=== PATIENT | female | born 1975 | race Caucasian/White ===

== ENCOUNTER → 2017-04-06 | Outpatient (CLI) | payer OTHER ==
[~2017-04-06] MED LIST: ATEN25TA PO; LEVO200T PO; SIMV10TA3 PO; WARF5TAB7 PO
== END | disposition home or self-care (01) ==
LOC: PETCFH 10:49
PROVIDERS: ATTEND Internal Medicine Endocrinology, Diabetes & Metabolism
DX: E83.52 Hypercalcemia (principal)
CPT/HCPCS: 78070; A9500

== ENCOUNTER → 2018-02-21 | Outpatient (CLI) | payer OTHER ==
[~2018-02-21] MED LIST changes: +WARF-36 PO; -WARF5TAB7 PO
== END | disposition home or self-care (01) ==
LOC: CFH 07:10
PROVIDERS: ATTEND Surgery
DX: Z01.818 Encounter for other preprocedural examination (principal); E66.01 Morbid (severe) obesity due to excess calories; K21.9 Gastro-esophageal reflux disease without esophagitis; Z90.411 Acquired partial absence of pancreas
CPT/HCPCS: 74241

== ENCOUNTER → 2018-05-11 | Outpatient (CLI) | payer OTHER ==
[2018-05-11 09:21] LABS: ALANINE AMINOTRANSFERASE 53 U/L (12-78); ALBUMIN 3.6 g/dL (3.4-5.0); CALCIUM 8.9 mg/dL (8.5-10.1); CREATININE 1.09 mg/dL (0.55-1.02)
[2018-05-11 09:23] LABS: ALKALINE PHOSPHATASE 73 U/L (45-117); BILIRUBIN,TOTAL 0.4 mg/dL (0.2-1.0); TOTAL PROTEIN 7.5 g/dL (6.4-8.2)
[2018-05-11 09:35] LABS: ANION GAP 3 mmol/L (5-15); CHLORIDE 108 mmol/L (98-107)
[2018-05-11 11:19] LABS: CREATININE,URINE RANDOM 89.6 mg/dL
== END | disposition home or self-care (01) ==
LOC: LAB 08:48
PROVIDERS: ATTEND Internal Medicine Endocrinology, Diabetes & Metabolism
DX: I63.9 Cerebral infarction, unspecified (principal); K50.90 Crohn's disease, unspecified, without complications; Z85.850 Personal history of malignant neoplasm of thyroid
CPT/HCPCS: 36415; 80053; 82310; 82570; 84105

== ENCOUNTER → 2018-11-10 | Outpatient (CLI) | payer OTHER | END | disposition home or self-care (01) | LOC: CFH 08:44 | PROVIDERS: ATTEND Obstetrics & Gynecology | DX: Z12.31 Encounter for screening mammogram for malignant neoplasm of breast (principal); Z88.5 Allergy status to narcotic agent | CPT/HCPCS: 77063; 77067 ==

== ENCOUNTER → 2019-07-06 | Outpatient (CLI) | payer OTHER ==
[2019-07-06 12:32] LABS: ALANINE AMINOTRANSFERASE 63 U/L (12-78); ALBUMIN 3.5 g/dL (3.4-5.0); CALCIUM 8.6 mg/dL (8.5-10.1); CREATININE 0.94 mg/dL (0.55-1.02)
[2019-07-06 12:34] LABS: ALKALINE PHOSPHATASE 74 U/L (45-117); BILIRUBIN,TOTAL 0.4 mg/dL (0.2-1.0)
[2019-07-06 12:39] LABS: ANION GAP 7 mmol/L (5-15); CHLORIDE 108 mmol/L (98-107)
== END | disposition home or self-care (01) ==
LOC: LAB 12:03
PROVIDERS: ATTEND Internal Medicine Endocrinology, Diabetes & Metabolism
DX: I63.9 Cerebral infarction, unspecified (principal); K50.90 Crohn's disease, unspecified, without complications; Z85.850 Personal history of malignant neoplasm of thyroid
CPT/HCPCS: 36415; 80053; 82310; 82570; 83970; 84100; 84105

== ENCOUNTER → 2019-09-20 | Outpatient (CLI) | payer OTHER ==
[~2019-09-20] MED LIST changes: +SIMV10TA18 PO; -SIMV10TA3 PO
[2019-09-20 07:35] LABS: ALANINE AMINOTRANSFERASE 55 U/L (12-78); ALBUMIN 3.6 g/dL (3.4-5.0); ANION GAP 6 mmol/L (5-15); CALCIUM 8.4 mg/dL (8.5-10.1); CHLORIDE 108 mmol/L (98-107); CREATININE 0.96 mg/dL (0.55-1.02)
[2019-09-20 07:45] LABS: ALKALINE PHOSPHATASE 67 U/L (45-117); BILIRUBIN,TOTAL 0.4 mg/dL (0.2-1.0); FREE T4 (FREE THYROXINE) 1.27 ng/dL (0.76-1.46); TOTAL PROTEIN 7.1 g/dL (6.4-8.2)
== END | disposition home or self-care (01) ==
LOC: LAB 07:08
PROVIDERS: ATTEND Internal Medicine Endocrinology, Diabetes & Metabolism
DX: E03.9 Hypothyroidism, unspecified (principal); K50.90 Crohn's disease, unspecified, without complications
CPT/HCPCS: 36415; 80053; 84439; 84443; 84481; 84702

== ENCOUNTER → 2019-09-22 | Outpatient (CLI) | payer OTHER | END | disposition home or self-care (01) | LOC: LAB 10:38 | PROVIDERS: ATTEND Obstetrics & Gynecology | DX: N91.1 Secondary amenorrhea (principal) | CPT/HCPCS: 36415; 84702 ==

== ENCOUNTER 2019-10-14 14:17 | Emergency (ER) | payer OTHER ==
[~2019-10-14] VITALS: Ht 167.6 cm; Wt 111.0 kg
--- NOTE | 2019-10-14 14:43 | NUR ---
PT HERE WITH C/O BRIGHT RED BLEEDING FROM VAGINA WITH CLOT WHILE IN SHOWER THIS AM, PT STATES SHE HAD HAD SOME PREVIOUS BLEEDING THAT WAS DARK AND SCANT IN AMOUNT. PT NOW STATES SHE HAD A LARGE AMOUNT OF BRIGHT RED BLEEDING. SHE HAS NOT SOAKED THROUGH PADS. 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 PT DENIES LIGHTHEADINESS/SOB/CP
--- NOTE | 2019-10-14 14:56 | NUR ---
PT TO US AT THIS TIME, LABS DRAWN
[2019-10-14 15:10] LABS: BASOPHILS # (AUTO) 0.02 x10^3/uL (0-0.1); BASOPHILS % (AUTO) 0 % (0-1); EOSINOPHILS # (AUTO) 0.06 x10^3/uL (0-0.4); EOSINOPHILS % (AUTO) 1 % (1-7); LYMPHOCYTES # (AUTO) 1.46 x10^3/uL (1-3.4); LYMPHOCYTES % (AUTO) 16 % (22-44); MD NO; MEAN CORPUSCULAR HEMOGLOBIN 30.6 pg (27.0-34.8); MEAN CORPUSCULAR HGB CONC 33.4 g/dL (32.4-35.8); MEAN CORPUSCULAR VOLUME 91.5 fL (80-100); MEAN PLATELET VOLUME 6.5 fL (7.4-10.4); MONOCYTES # (AUTO) 0.59 x10^3/uL (0.2-0.8); MONOCYTES % (AUTO) 7 % (2-9); NEUTROPHILS % (AUTO) 76 % (42-75); PLATELET COUNT 305 x10^3/uL (130-400); RED BLOOD COUNT 4.24 x10^6/uL (3.82-5.3); RED CELL DISTRIBUTION WIDTH 13.1 % (9.6-15.2)
[2019-10-14 15:15] LABS: ALBUMIN 3.2 g/dL (3.4-5.0); ANION GAP 6 mmol/L (5-15); CALCIUM 8.9 mg/dL (8.5-10.1); CHLORIDE 108 mmol/L (98-107); CREATININE 0.77 mg/dL (0.55-1.02)
--- NOTE | 2019-10-14 15:38 | NUR ---
PT BACK FROM US, UA SAMPLE COLLECTED AND SENT TO LAB, MARK PER FOR CLEAN CATCH. VSS. NAD
[2019-10-14 15:49] LABS: MICROSCOPIC INDICATED
[2019-10-14 16:05] LABS: CULTURE INDICATED? NO
[2019-10-14 16:31] VITALS: BP 120/81
[2019-10-14 16:46] VITALS: BP 128/80
== END 2019-10-14 17:12 | disposition home or self-care (01) ==
LOC: ED 15:30
DX: O20.0 Threatened abortion (principal); O09.521 Supervision of elderly multigravida, first trimester; O10.911 Unspecified pre-existing hypertension complicating pregnancy, first trimester; O99.281 Endocrine, nutritional and metabolic diseases complicating pregnancy, first trimester; E03.9 Hypothyroidism, unspecified; Z3A.08 8 weeks gestation of pregnancy; Z86.73 Personal history of transient ischemic attack (TIA), and cerebral infarction without residual deficits
CPT/HCPCS: 36415; 76801; 80048; 81001; 82040; 84702; 85025; 86850; 86900; 99284; J2790

== ENCOUNTER 2019-10-19 11:08 | Outpatient (CLI) | payer OTHER ==
[2019-10-19 13:01] LABS: FREE T4 (FREE THYROXINE) 1.33 ng/dL (0.76-1.46)
== END 2019-10-19 23:59 | disposition home or self-care (01) ==
LOC: CFH 11:08
PROVIDERS: ATTEND Internal Medicine Endocrinology, Diabetes & Metabolism
DX: E03.9 Hypothyroidism, unspecified (principal); I63.9 Cerebral infarction, unspecified; K50.90 Crohn's disease, unspecified, without complications; Z85.850 Personal history of malignant neoplasm of thyroid
CPT/HCPCS: 36415; 84439; 84443; 84481

== ENCOUNTER → 2019-11-21 | Outpatient (CLI) | payer OTHER ==
[2019-11-21 12:00] LABS: FREE T4 (FREE THYROXINE) 1.18 ng/dL (0.76-1.46)
== END | disposition home or self-care (01) ==
LOC: LAB 11:18
PROVIDERS: ATTEND Family Medicine
DX: E89.0 Postprocedural hypothyroidism (principal)
CPT/HCPCS: 36415; 84439; 84443; 84480

== ENCOUNTER → 2019-12-28 | Outpatient (CLI) | payer OTHER ==
[2019-12-28 15:06] LABS: FREE T4 (FREE THYROXINE) 1.18 ng/dL (0.76-1.46)
== END | disposition home or self-care (01) ==
LOC: LAB 14:32
PROVIDERS: ATTEND Family Medicine
DX: E89.0 Postprocedural hypothyroidism (principal)
CPT/HCPCS: 36415; 84439; 84443; 84480

== ENCOUNTER 2020-01-15 12:20 | Outpatient (CLI) | payer OTHER ==
[2020-01-15 13:11] LABS: FREE T4 (FREE THYROXINE) 1.05 ng/dL (0.76-1.46)
== END 2020-01-15 23:59 | disposition home or self-care (01) ==
LOC: LAB 12:20
PROVIDERS: ATTEND Family Medicine
DX: E89.0 Postprocedural hypothyroidism (principal)
CPT/HCPCS: 36415; 84439; 84443; 84480

== ENCOUNTER 2020-01-21 16:06 | Emergency (ER) | payer OTHER ==
[~2020-01-21] VITALS: Ht 167.6 cm; Wt 115.9 kg
--- NOTE | 2020-01-21 16:22 | NUR ---
SPOKE WITH FER IN L&D, REQUESTED L&D TO COME ASSESS T
--- NOTE | 2020-01-21 16:34 | NUR ---
PT STATES THAT SHE HAS HAD 4 TOTAL EPISODES LIKE THIS SINCE THIS PAST TUESDAY. PT DESCRIBES A SUDDEN ONSET DIZZINESS THAT LEADS TO NAUSEA AND VOMITING. PT HAS VERY FULL EMESIS BAG AT BEDSIDE. PT STATES SHE HAS MONITORED BOTH HER BP AND BG DURING THESE EPISODES, ALL WNL. DENIES ANY FURTHER NEEDS, CALL LIGHT IN REACH.
[2020-01-21] MEDS ORDERED: SODIUM CHLORIDE FLUSH 10ML SYR IVF ONE (17:30)
[2020-01-21] MEDS ORDERED: MECLIZINE CHEWABLE 25 MG TAB PO ONE (17:30)
[2020-01-21] MEDS ORDERED: SODIUM CHLORIDE 0.9% 1,000ML IVBOLUS ONE (17:30)
[2020-01-21] MEDS ORDERED: MECLIZINE CHEWABLE 25 MG TAB ONE (17:52)
--- NOTE | 2020-01-21 17:56 | NUR ---
PT UP TO RESTROOM WITH STRONG, INDEPENDENT GAIT. AT SIDE FOR ASSISTANCE. URINE SAMPLE COLLECTED. IV STARTED, LABS DRAWN AND SENT. PT MEDICATED PER SEP. PT PROVIDED WITH WARM BLANKETS. CALL LIGHT IN REACH.
[2020-01-21 17:58] LABS: BASOPHILS # (AUTO) 0.07 x10^3/uL (0-0.1); BASOPHILS % (AUTO) 1 % (0-1); EOSINOPHILS # (AUTO) 0.06 x10^3/uL (0-0.4); EOSINOPHILS % (AUTO) 1 % (1-7); LYMPHOCYTES # (AUTO) 1.58 x10^3/uL (1-3.4); LYMPHOCYTES % (AUTO) 16 % (22-44); MD NO; MEAN CORPUSCULAR HEMOGLOBIN 32.3 pg (27.0-34.8); MEAN CORPUSCULAR HGB CONC 33.9 g/dL (32.4-35.8); MEAN PLATELET VOLUME 6.7 fL (7.4-10.4); MONOCYTES # (AUTO) 0.72 x10^3/uL (0.2-0.8); MONOCYTES % (AUTO) 7 % (2-9); NEUTROPHILS # (AUTO) 7.38 x10^3/uL (1.8-6.8); NEUTROPHILS % (AUTO) 75 % (42-75); PLATELET COUNT 255 x10^3/uL (130-400); RED BLOOD COUNT 3.74 x10^6/uL (3.82-5.3); RED CELL DISTRIBUTION WIDTH 13.5 % (9.6-15.2)
[2020-01-21 18:09] LABS: INTERNATIONAL NORMALIZED RATIO 0.89 (0.93-1.1); PROTHROMBIN TIME 9.4 Seconds (9.6-11.5)
[2020-01-21 18:11] LABS: ALANINE AMINOTRANSFERASE 26 U/L (12-78); ALBUMIN 3.1 g/dL (3.4-5.0); ANION GAP 5 mmol/L (5-15); CALCIUM 8.6 mg/dL (8.5-10.1); CHLORIDE 106 mmol/L (98-107); CREATININE 1.05 mg/dL (0.55-1.02)
[2020-01-21 18:13] LABS: ALKALINE PHOSPHATASE 54 U/L (45-117); BILIRUBIN,TOTAL 0.3 mg/dL (0.2-1.0); TOTAL PROTEIN 7.6 g/dL (6.4-8.2)
[2020-01-21 18:32] LABS: MICROSCOPIC NOT IND
[2020-01-21 19:19] VITALS: BP 142/85
--- NOTE | 2020-01-21 19:20 | NUR ---
BREAK RN: PT LAYING IN BED, POSITIONED TO COMFORT, LIGHTS OFF TO PROMOTE REST. RESPIRATIONS EVEN AND UNLABORED, NO SIGNS OF DISTRESS. CONNECTED TO BP AND O2 MONITOR. CALL LIGHT IN REACH. AT BEDSIDE.
== END 2020-01-21 20:08 | disposition home or self-care (01) ==
LOC: ED 19:18
DX: O26.892 Other specified pregnancy related conditions, second trimester (principal); R42 Dizziness and giddiness; O16.2 Unspecified maternal hypertension, second trimester; O99.282 Endocrine, nutritional and metabolic diseases complicating pregnancy, second trimester; R94.31 Abnormal electrocardiogram [ECG] [EKG]; Z86.73 Personal history of transient ischemic attack (TIA), and cerebral infarction without residual deficits; Z3A.22 22 weeks gestation of pregnancy
CPT/HCPCS: 36415; 80053; 81003; 84550; 85025; 85610; 85730; 93005; 96360; 96361; 99284; J7030

== ENCOUNTER 2020-01-24 10:41 | Outpatient (CLI) | payer OTHER | END 2020-01-24 23:59 | disposition home or self-care (01) | LOC: CVU 10:41 | PROVIDERS: ATTEND Internal Medicine Cardiovascular Disease | DX: O99.412 Diseases of the circulatory system complicating pregnancy, second trimester (principal); I08.1 Rheumatic disorders of both mitral and tricuspid valves; O16.2 Unspecified maternal hypertension, second trimester; Z3A.23 23 weeks gestation of pregnancy | CPT/HCPCS: 93306; 93356 ==

== ENCOUNTER 2020-01-26 11:11 | Outpatient (CLI) | payer OTHER ==
[2020-01-26 11:57] LABS: BASOPHILS # (AUTO) 0.02 x10^3/uL (0-0.1); BASOPHILS % (AUTO) 0 % (0-1); EOSINOPHILS # (AUTO) 0.03 x10^3/uL (0-0.4); EOSINOPHILS % (AUTO) 0 % (1-7); LYMPHOCYTES # (AUTO) 1.17 x10^3/uL (1-3.4); LYMPHOCYTES % (AUTO) 13 % (22-44); MD NO; MEAN CORPUSCULAR HEMOGLOBIN 31.8 pg (27.0-34.8); MEAN CORPUSCULAR HGB CONC 33.4 g/dL (32.4-35.8); MEAN CORPUSCULAR VOLUME 95.2 fL (80-100); MEAN PLATELET VOLUME 6.5 fL (7.4-10.4); MONOCYTES # (AUTO) 0.57 x10^3/uL (0.2-0.8); MONOCYTES % (AUTO) 6 % (2-9); NEUTROPHILS % (AUTO) 81 % (42-75); PLATELET COUNT 248 x10^3/uL (130-400); RED BLOOD COUNT 3.61 x10^6/uL (3.82-5.3); RED CELL DISTRIBUTION WIDTH 13.1 % (9.6-15.2)
== END 2020-01-26 23:59 | disposition home or self-care (01) ==
LOC: LAB 11:11
PROVIDERS: ATTEND Obstetrics & Gynecology
DX: Z34.82 Encounter for supervision of other normal pregnancy, second trimester (principal); Z3A.24 24 weeks gestation of pregnancy
CPT/HCPCS: 36415; 82950; 85025; 86592; 86780

== ENCOUNTER → 2020-01-29 | Outpatient (CLI) | payer OTHER | END | disposition home or self-care (01) | LOC: LAB 16:40 | PROVIDERS: ATTEND Family Medicine | DX: E89.0 Postprocedural hypothyroidism (principal) | CPT/HCPCS: 36415; 84439; 84443 ==

== ENCOUNTER → 2020-02-02 | Outpatient (CLI) | payer OTHER | END | disposition home or self-care (01) | LOC: LAB 11:07 | PROVIDERS: ATTEND Obstetrics & Gynecology | DX: R73.09 Other abnormal glucose (principal) | CPT/HCPCS: 36415; 82947; 82951 ==

== ENCOUNTER → 2020-02-29 | Outpatient (CLI) | payer OTHER ==
[2020-02-29 15:58] LABS: FREE T4 (FREE THYROXINE) 1.22 ng/dL (0.76-1.46)
== END | disposition home or self-care (01) ==
LOC: CFH 12:28
PROVIDERS: ATTEND Family Medicine
DX: E89.0 Postprocedural hypothyroidism (principal)
CPT/HCPCS: 36415; 84439; 84443

== ENCOUNTER 2020-03-22 19:35 | Outpatient (CLI) | payer OTHER ==
[~2020-03-22] VITALS: Ht 167.6 cm; Wt 119.0 kg
[2020-03-22 20:07] LABS: MICROSCOPIC INDICATED
[2020-03-22 20:14] VITALS: BP 144/83
[2020-03-22] MEDS ORDERED: LABE200T6 PO (21:56)
== END 2020-03-22 22:05 | disposition home or self-care (01) ==
LOC: LDOP 19:35
PROVIDERS: ATTEND Obstetrics & Gynecology
DX: O16.3 Unspecified maternal hypertension, third trimester (principal); O09.523 Supervision of elderly multigravida, third trimester; Z3A.31 31 weeks gestation of pregnancy
CPT/HCPCS: 59025; 81001; 87086

== ENCOUNTER → 2020-03-28 | Outpatient (CLI) | payer OTHER ==
[~2020-03-28] MED LIST changes: +LABE200T6 PO
[2020-03-28 13:17] LABS: FREE T4 (FREE THYROXINE) 1.25 ng/dL (0.76-1.46)
== END | disposition home or self-care (01) ==
LOC: CFH 11:18
PROVIDERS: ATTEND Family Medicine
DX: E89.0 Postprocedural hypothyroidism (principal)
CPT/HCPCS: 36415; 84439; 84443

== ENCOUNTER 2020-04-18 17:23 | Outpatient (CLI) | payer OTHER ==
[~2020-04-18] VITALS: Ht 167.6 cm; Wt 122.0 kg
[2020-04-18 18:19] LABS: MICROSCOPIC INDICATED
[2020-04-18 18:21] LABS: ALANINE AMINOTRANSFERASE 55 U/L (12-78); ALBUMIN 2.3 g/dL (3.4-5.0); ANION GAP 10 mmol/L (5-15); BASOPHILS # (AUTO) 0.03 x10^3/uL (0-0.1); BASOPHILS % (AUTO) 0 % (0-1); BILIRUBIN, DIRECT 0.1 mg/dL (0.1-0.2); CALCIUM 8.5 mg/dL (8.5-10.1); CHLORIDE 109 mmol/L (98-107); CREATININE 0.81 mg/dL (0.55-1.02); EOSINOPHILS # (AUTO) 0.12 x10^3/uL (0-0.4); EOSINOPHILS % (AUTO) 2 % (1-7); LYMPHOCYTES # (AUTO) 1.21 x10^3/uL (1-3.4); LYMPHOCYTES % (AUTO) 16 % (22-44); MD NO; MEAN CORPUSCULAR HEMOGLOBIN 32.7 pg (27.0-34.8); MEAN CORPUSCULAR HGB CONC 34.4 g/dL (32.4-35.8); MONOCYTES # (AUTO) 0.73 x10^3/uL (0.2-0.8); MONOCYTES % (AUTO) 10 % (2-9); NEUTROPHILS # (AUTO) 5.57 x10^3/uL (1.8-6.8); NEUTROPHILS % (AUTO) 73 % (42-75); PLATELET COUNT 205 x10^3/uL (130-400); RED BLOOD COUNT 3.32 x10^6/uL (3.82-5.3); RED CELL DISTRIBUTION WIDTH 12.9 % (9.6-15.2)
[2020-04-18 18:24] LABS: ALKALINE PHOSPHATASE 84 U/L (45-117); BILIRUBIN,TOTAL 0.3 mg/dL (0.2-1.0); TOTAL PROTEIN 6.2 g/dL (6.4-8.2)
[2020-04-18] MEDS ORDERED: CALC0.25 PO (19:00)
[2020-04-18] MEDS ORDERED: PNV1TAB.5 PO (19:00)
== END 2020-04-18 19:33 | disposition home or self-care (01) ==
LOC: LDOP 17:23
PROVIDERS: ATTEND Obstetrics & Gynecology
DX: O09.93 Supervision of high risk pregnancy, unspecified, third trimester (principal); O16.3 Unspecified maternal hypertension, third trimester; Z3A.35 35 weeks gestation of pregnancy
CPT/HCPCS: 36415; 59025; 80053; 81001; 82248; 82570; 84156; 84550; 85025; 87086

== ENCOUNTER 2020-04-20 16:54 | Outpatient (CLI) | payer OTHER ==
[~2020-04-20] VITALS: Ht 167.6 cm; Wt 122.7 kg
[~2020-04-20 16:54] MED LIST changes: +CALC0.25 PO; +PNV1TAB.5 PO
[2020-04-20] MEDS ORDERED: niFEDipine ER 30 MG TABLET.ER ONE (17:56)
[2020-04-20] MEDS ORDERED: niFEDipine ER 30 MG TABLET.ER PO ONE (18:00)
== END 2020-04-20 18:02 | disposition home or self-care (01) ==
LOC: LDOP 16:54
PROVIDERS: ATTEND Obstetrics & Gynecology
DX: O16.3 Unspecified maternal hypertension, third trimester (principal); Z3A.35 35 weeks gestation of pregnancy
CPT/HCPCS: 59025

== ENCOUNTER 2020-04-21 16:37 | Outpatient (CLI) | payer OTHER ==
[~2020-04-21] VITALS: Ht 168.9 cm; Wt 123.6 kg
[2020-04-21] MEDS ORDERED: BETAMETHASONE 6 MG/ML, 5ML IM ONE ×2 (16:42→17:00)
[2020-04-21 16:58] VITALS: BP 133/81
== END 2020-04-21 17:15 | disposition home or self-care (01) ==
LOC: LDOP 16:37
PROVIDERS: ATTEND Obstetrics & Gynecology
DX: O16.3 Unspecified maternal hypertension, third trimester (principal); O09.523 Supervision of elderly multigravida, third trimester; Z3A.35 35 weeks gestation of pregnancy
CPT/HCPCS: 59025; 96372; J0702

== ENCOUNTER 2020-04-22 16:42 | Outpatient (CLI) | payer OTHER ==
[~2020-04-22] VITALS: Ht 168.9 cm; Wt 123.6 kg
[2020-04-22] MEDS ORDERED: BETAMETHASONE 6 MG/ML, 5ML IM ONE (17:00)
[2020-04-22 17:11] VITALS: BP 144/79
== END 2020-04-22 17:40 | disposition home or self-care (01) ==
LOC: LDOP 16:42
PROVIDERS: ATTEND Obstetrics & Gynecology
DX: O16.3 Unspecified maternal hypertension, third trimester (principal); O09.523 Supervision of elderly multigravida, third trimester; E03.9 Hypothyroidism, unspecified; Z3A.35 35 weeks gestation of pregnancy
CPT/HCPCS: 59025; 96372; J0702

== ENCOUNTER 2020-04-25 07:36 | Inpatient (IN) | payer OTHER ==
[~2020-04-25] VITALS: Ht 167.6 cm; Wt 119.5 kg
[2020-04-25] MEDS ORDERED: OXYTOCIN 30U/ 0.9% NaCL 500ML 500 ML IV ONE (07:56)
[2020-04-25] MEDS ORDERED: LACTATED RINGERS 1,000 ML IV SCH ×4 (07:56→15:22)
[2020-04-25] MEDS ORDERED: D5%-LACTATED RINGERS 1,000 ML IV SCH (07:56)
[2020-04-25] MEDS ORDERED: FENTANYL PF 100 MCG/2ML IVPush PRN (08:00)
[2020-04-25] MEDS ORDERED: TERBUTALINE 1 MG/ML, 1ML SQ PRN (08:00)
[2020-04-25] MEDS ORDERED: CALCIUM CARBONATE 500 MG TAB.CHEW PO PRN (08:00)
[2020-04-25] MEDS ORDERED: TERBUTALINE 1 MG/ML, 1ML IVPush PRN (08:00)
[2020-04-25] MEDS ORDERED: FENTANYL PF 100 MCG/2ML IV PRN ×2 (08:00→15:30)
[2020-04-25 08:20] LABS: BASOPHILS # (AUTO) 0.04 x10^3/uL (0-0.1); BASOPHILS % (AUTO) 1 % (0-1); EOSINOPHILS # (AUTO) 0.12 x10^3/uL (0-0.4); EOSINOPHILS % (AUTO) 1 % (1-7); LYMPHOCYTES # (AUTO) 1.47 x10^3/uL (1-3.4); LYMPHOCYTES % (AUTO) 17 % (22-44); MD NO; MEAN CORPUSCULAR HEMOGLOBIN 32.4 pg (27.0-34.8); MEAN CORPUSCULAR HGB CONC 33.8 g/dL (32.4-35.8); MEAN PLATELET VOLUME 7.9 fL (7.4-10.4); MONOCYTES # (AUTO) 0.91 x10^3/uL (0.2-0.8); MONOCYTES % (AUTO) 11 % (2-9); NEUTROPHILS # (AUTO) 5.98 x10^3/uL (1.8-6.8); NEUTROPHILS % (AUTO) 70 % (42-75); PLATELET COUNT 205 x10^3/uL (130-400); RED BLOOD COUNT 3.54 x10^6/uL (3.82-5.3); RED CELL DISTRIBUTION WIDTH 12.8 % (9.6-15.2)
[2020-04-25] MEDS ORDERED: PLEASE ENTER HEIGHT AND WEIGHT MC SCH (08:30)
[2020-04-25] MEDS ORDERED: OXYTOCIN 30U/ 0.9% NaCL 500ML 500 ML ONE ×2 (08:33→12:49)
[2020-04-25] MEDS ORDERED: OXYTOCIN 30U/ 0.9% NaCL 500ML 500 ML IV PRN (09:10)
[2020-04-25 09:12] VITALS: BP 143/90
[2020-04-25] MEDS ORDERED: NEWBORN KIT ONE (09:20)
[2020-04-25] MEDS ORDERED: LABETALOL 5MG/ML, 20ML ONE (09:59)
[2020-04-25] MEDS ORDERED: hydrALAzine 20 MG/ML, 1ML IVPush ONE ×3 (10:00)
[2020-04-25] MEDS ORDERED: LABETALOL 5MG/ML 40ML VIAL IVPush ONE (10:00)
[2020-04-25] MEDS ORDERED: LABETALOL 5MG/ML, 20ML IVPush PRN ×3 (10:00→11:00)
[2020-04-25] MEDS ORDERED: FENTANYL/BUPIV./NS/PF 250 ML EPIDCONT ONE (10:10)
[2020-04-25] MEDS ORDERED: BUPIVACAINE 0.25% ONE (10:16)
[2020-04-25] MEDS ORDERED: ONDANSETRON 2MG/ML, 2ML IVPush PRN ×2 (11:00→15:30)
[2020-04-25] MEDS ORDERED: DIPHENHYDRAMINE 50 MG/ML, 1ML IVPush PRN ×2 (11:00→15:30)
[2020-04-25] MEDS ORDERED: EPHEDRINE 50 MG/ML, 1ML IVPush PRN (11:00)
[2020-04-25] MEDS ORDERED: NALOXONE 0.4 MG/ML, 1ML IVPush PRN (11:00)
[2020-04-25] MEDS ORDERED: LACTATED RINGERS 1,000 ML IVBOLUS PRN (11:00)
[2020-04-25] MEDS ORDERED: FENTANYL/BUPIV./NS/PF 250 ML EPIDCONT SCH (11:15)
[2020-04-25] MEDS ORDERED: MISOPROSTOL 200 MCG TABLET ONE (12:26)
[2020-04-25] MEDS ORDERED: TRANEXAMIC ACID 100 MG/ML, 10ML ONE (12:29)
[2020-04-25 13:20] LABS: INTERNATIONAL NORMALIZED RATIO 0.96 (0.93-1.1); PROTHROMBIN TIME 9.9 Seconds (9.6-11.5)
[2020-04-25] MEDS ORDERED: LIDOCAINE-MPF 2% ,5ML ONE ×4 (13:23)
[2020-04-25] MEDS ORDERED: OXYTOCIN 10 UNITS/ML, 1ML ONE ×2 (13:23)
[2020-04-25 13:33] LABS: MEAN CORPUSCULAR HEMOGLOBIN 32.2 pg (27.0-34.8); MEAN CORPUSCULAR HGB CONC 33.5 g/dL (32.4-35.8); MEAN PLATELET VOLUME 7.6 fL (7.4-10.4); PLATELET COUNT 204 x10^3/uL (130-400); RED BLOOD COUNT 2.89 x10^6/uL (3.82-5.3); RED CELL DISTRIBUTION WIDTH 12.6 % (9.6-15.2)
[2020-04-25] MEDS ORDERED: SODIUM BICARBONATE 1 MEQ/ML, 50ML VIAL ONE (13:45)
[2020-04-25] MEDS ORDERED: FENTANYL PF 100 MCG/2ML ONE (13:46)
[2020-04-25] MEDS ORDERED: INTERCEED 3 X 4 INCH DRESSING ONE (14:14)
[2020-04-25] MEDS ORDERED: CEFAZOLIN 1,000 MG ONE ×2 (14:36)
[2020-04-25 14:43] LABS: BASOPHILS # (AUTO) 0.03 x10^3/uL (0-0.1); BASOPHILS % (AUTO) 0 % (0-1); EOSINOPHILS # (AUTO) 0.03 x10^3/uL (0-0.4); EOSINOPHILS % (AUTO) 0 % (1-7); LYMPHOCYTES # (AUTO) 1.32 x10^3/uL (1-3.4); LYMPHOCYTES % (AUTO) 12 % (22-44); MD SCAN; MONOCYTES % (AUTO) 6 % (2-9); NEUTROPHILS # (AUTO) 8.85 x10^3/uL (1.8-6.8); NEUTROPHILS % (AUTO) 82 % (42-75)
[2020-04-25] MEDS ORDERED: KETOROLAC 30 MG/1 ML ONE (15:21)
[2020-04-25] MEDS ORDERED: LABETALOL 5MG/ML, 20ML IV PRN (15:30)
[2020-04-25] MEDS ORDERED: ONDANSETRON 2MG/ML, 2ML IV PRN (15:30)
[2020-04-25] MEDS ORDERED: morphine SULFATE 10 MG/ML, 1ML IVPush PRN (15:30)
[2020-04-25] MEDS ORDERED: MEPERIDINE/PF 50 MG/ML IVPush PRN (15:30)
[2020-04-25] MEDS ORDERED: hydrALAzine 20 MG/ML, 1ML IV PRN (15:30)
[2020-04-25] MEDS ORDERED: OXYcodone 5 MG/5 ML ORAL.SOL UDC PO PRN (15:30)
[2020-04-25] MEDS ORDERED: MEPERIDINE/PF 100 MG/ML IVPush PRN (15:30)
[2020-04-25] MEDS ORDERED: MEPERIDINE/PF 25MG/0.5ML IVPush PRN (15:30)
[2020-04-25] MEDS ORDERED: BISACODYL 10 MG SUPP PR PRN (15:30)
[2020-04-25] MEDS ORDERED: GLYCERIN ADULT SUPP PR PRN (15:30)
[2020-04-25] MEDS ORDERED: CARBOPROST TROMETHAMINE 250 MCG/ML, 1ML IM ONE (16:06)
[2020-04-25 17:00] VITALS: BP 109/67
[2020-04-25 20:00] VITALS: BP 134/92
[2020-04-25] MEDS: DOCUSATE 100 MG CAPSULE PO PRN (20:57)
[2020-04-25] MEDS: IBUPROFEN 800 MG TABLET PO PRN (20:57)
[2020-04-25] MEDS: OXYcodone/APAP 5/325MG TABLET PO PRN (22:12)
[2020-04-26] VITALS (7 sets, daily range): BP systolic 110–157; BP diastolic 79–101
[2020-04-26] MEDS: OXYcodone/APAP 5/325MG TABLET PO PRN ×4 (02:53→22:15)
[2020-04-26] MEDS: IBUPROFEN 800 MG TABLET PO PRN ×3 (05:07→22:14)
[2020-04-26] MEDS: LEVOTHYROXINE 100 MCG TABLET PO SCH (06:00)
[2020-04-26] MEDS ORDERED: LEVOTHYROXINE 100 MCG TABLET PO SCH (06:00)
[2020-04-26] MEDS: LABETALOL 200 MG TABLET PO SCH ×3 (06:09→22:14)
[2020-04-26] MEDS: DOCUSATE 100 MG CAPSULE PO PRN ×2 (08:57→22:14)
[2020-04-26] MEDS: PRENATAL VIT/IRON/FA 1 EACH TABLET PO SCH (08:57)
[2020-04-26] MEDS: SIMETHICONE 80 MG CHEW TAB PO PRN (22:14)
[2020-04-27 05:45] VITALS: BP 151/80
[2020-04-27] MEDS: IBUPROFEN 800 MG TABLET PO PRN ×2 (05:47→16:32)
[2020-04-27] MEDS: LABETALOL 200 MG TABLET PO SCH ×3 (05:48→23:06)
[2020-04-27] MEDS: OXYcodone/APAP 5/325MG TABLET PO PRN ×4 (05:49→20:38)
[2020-04-27] MEDS: LEVOTHYROXINE 100 MCG TABLET PO SCH (05:50)
[2020-04-27 08:24] VITALS: BP 115/74
[2020-04-27] MEDS: PRENATAL VIT/IRON/FA 1 EACH TABLET PO SCH (09:00)
[2020-04-27] MEDS: ONDANSETRON ODT 4 MG PO PRN (11:48)
[2020-04-27 14:00] VITALS: BP 133/83
[2020-04-27 19:46] VITALS: BP 131/85
[2020-04-27] MEDS: DOCUSATE 100 MG CAPSULE PO PRN (20:37)
[2020-04-27] MEDS: SIMETHICONE 80 MG CHEW TAB PO PRN (20:38)
[2020-04-27 23:00] VITALS: BP 148/89
[2020-04-28] MEDS: IBUPROFEN 800 MG TABLET PO PRN ×3 (02:06→20:10)
[2020-04-28] MEDS: OXYcodone/APAP 5/325MG TABLET PO PRN ×4 (02:07→15:59)
[2020-04-28 04:41] VITALS: BP 125/78
[2020-04-28] MEDS: LABETALOL 200 MG TABLET PO SCH ×3 (06:14→22:15)
[2020-04-28 06:15] VITALS: BP 136/89
[2020-04-28] MEDS: LEVOTHYROXINE 100 MCG TABLET PO SCH (06:16)
[2020-04-28] MEDS: PRENATAL VIT/IRON/FA 1 EACH TABLET PO SCH (07:38)
[2020-04-28] MEDS: SIMETHICONE 80 MG CHEW TAB PO PRN ×2 (07:38→18:53)
[2020-04-28] MEDS: DOCUSATE 100 MG CAPSULE PO PRN (07:38)
[2020-04-28] MEDS: ONDANSETRON ODT 4 MG PO PRN (08:18)
[2020-04-28 08:21] VITALS: BP 146/87
[2020-04-28 12:45] VITALS: BP 136/86
[2020-04-28 15:51] VITALS: BP 129/77
[2020-04-28] MEDS: BISACODYL 5 MG EC TABLET PO PRN (18:51)
[2020-04-28 22:11] VITALS: BP 154/88
[2020-04-29 05:00] VITALS: BP 146/76
[2020-04-29] MEDS: LEVOTHYROXINE 100 MCG TABLET PO SCH (05:03)
[2020-04-29] MEDS: IBUPROFEN 800 MG TABLET PO PRN (05:04)
[2020-04-29] MEDS: LABETALOL 200 MG TABLET PO SCH (05:04)
[2020-04-29] MEDS: SIMETHICONE 80 MG CHEW TAB PO PRN (05:04)
[2020-04-29] MEDS: BISACODYL 5 MG EC TABLET PO PRN (05:05)
[2020-04-29 07:26] VITALS: BP 126/80
[2020-04-29] MEDS: DOCUSATE 100 MG CAPSULE PO PRN (07:30)
[2020-04-29] MEDS: PRENATAL VIT/IRON/FA 1 EACH TABLET PO SCH (07:32)
[2020-04-29] MEDS ORDERED: IBUP-1222 PO (11:36)
[2020-04-29] MEDS ORDERED: OXYC-302 PO (11:36)
[2020-04-29] MEDS ORDERED: DOCU-131 PO (11:36)
== END 2020-04-29 12:31 | disposition home or self-care (01) | DRG 768 ==
LOC: LDIP 07:36 → 2NW 16:44
PROVIDERS: ADMIT Obstetrics & Gynecology; ATTEND Obstetrics & Gynecology
PROC: 30233N1 Transfusion of Nonautologous Red Blood Cells into Peripheral Vein, Percutaneous Approach (ICD-10-PCS; 2020-04-25)
PROC: 10E0XZZ Delivery of Products of Conception, External Approach (ICD-10-PCS; principal; 2020-04-26)
PROC: 0UT90ZL Resection of Uterus, Supracervical, Open Approach (ICD-10-PCS; 2020-04-26)
PROC: 0UT70ZZ Resection of Bilateral Fallopian Tubes, Open Approach (ICD-10-PCS; 2020-04-26)
PROC: 10D17Z9 Manual Extraction of Products of Conception, Retained, Via Natural or Artificial Opening (ICD-10-PCS; 2020-04-26)
PROC: 10H07YZ Insertion of Other Device into Products of Conception, Via Natural or Artificial Opening (ICD-10-PCS; 2020-04-26)
PROC: 3E033VJ Introduction of Other Hormone into Peripheral Vein, Percutaneous Approach (ICD-10-PCS; 2020-04-26)
DX: O40.3XX0 Polyhydramnios, third trimester, not applicable or unspecified (principal); Z37.2 Twins, both liveborn; O72.1 Other immediate postpartum hemorrhage; D62 Acute posthemorrhagic anemia; O99.284 Endocrine, nutritional and metabolic diseases complicating childbirth; O16.4 Unspecified maternal hypertension, complicating childbirth; O36.63X0 Maternal care for excessive fetal growth, third trimester, not applicable or unspecified; Z3A.36 36 weeks gestation of pregnancy; O30.003 Twin pregnancy, unspecified number of placenta and unspecified number of amniotic sacs, third trimester; O90.81 Anemia of the puerperium; O34.219 Maternal care for unspecified type scar from previous cesarean delivery; Z20.828 Contact with and (suspected) exposure to other viral communicable diseases
CPT/HCPCS: 36415; 74018; J3490; 85014; 85018; 85025; 85384; 85610; 85730; 86592; 86850; 86870; 86900; 86922; 86923; 87635; 88302; 88307; G0378; J0690; J1885; J3010; Q0162; C1765; J2590; J7120; P9016

== ENCOUNTER → 2020-07-07 | Outpatient (CLI) | payer OTHER ==
[~2020-07-07] MED LIST changes: +DOCU-131 PO; +IBUP-1222 PO; +OXYC-302 PO
[2020-07-07 13:50] LABS: FREE T4 (FREE THYROXINE) 1.47 ng/dL (0.76-1.46)
== END | disposition home or self-care (01) ==
LOC: LAB 13:17
PROVIDERS: ATTEND Family Medicine
DX: E89.0 Postprocedural hypothyroidism (principal)
CPT/HCPCS: 36415; 84439; 84443; 84480

== ENCOUNTER 2020-08-01 15:00 | Outpatient (CLI) | payer OTHER ==
[2020-08-01 15:40] LABS: FREE T4 (FREE THYROXINE) 1.44 ng/dL (0.76-1.46)
[2020-08-01 15:47] LABS: BASOPHILS % (AUTO) 1 % (0-1); EOSINOPHILS % (AUTO) 3 % (1-7); LYMPHOCYTES % (AUTO) 32 % (22-44); MEAN CORPUSCULAR HEMOGLOBIN 26.5 pg (27.0-34.8); MEAN CORPUSCULAR HGB CONC 32.7 g/dL (32.4-35.8); MEAN PLATELET VOLUME 6.9 fL (7.4-10.4); MONOCYTES % (AUTO) 11 % (2-9); NEUTROPHILS % (AUTO) 53 % (42-75); PLATELET COUNT 271 x10^3/uL (130-400); RED BLOOD COUNT 4.48 x10^6/uL (3.82-5.3); RED CELL DISTRIBUTION WIDTH 17.6 % (9.6-15.2)
[2020-08-01 15:50] LABS: MD NO
== END 2020-08-01 23:59 | disposition home or self-care (01) ==
LOC: LAB 15:00
PROVIDERS: ATTEND Family Medicine
DX: O09.90 Supervision of high risk pregnancy, unspecified, unspecified trimester (principal); O99.019 Anemia complicating pregnancy, unspecified trimester; E89.0 Postprocedural hypothyroidism
CPT/HCPCS: 36415; 84439; 84443; 85025

== ENCOUNTER 2020-12-04 10:28 | Outpatient (CLI) | payer OTHER ==
[~2020-12-04 10:28] MED LIST changes: -OXYC-302 PO; +OXYC1TAB14 PO
[2020-12-04 10:55] LABS: ALANINE AMINOTRANSFERASE 54 U/L (12-78); ALBUMIN 3.8 g/dL (3.4-5.0); ANION GAP 3 mmol/L (5-15); CALCIUM 8.5 mg/dL (8.5-10.1); CHLORIDE 107 mmol/L (98-107); CHOLESTEROL, TOTAL 224 mg/dL (140-239); CREATININE 0.91 mg/dL (0.55-1.02); TRIGLYCERIDES 71 mg/dL (50-200); VLDL CHOLESTEROL 14 mg/dL (0-25)
[2020-12-04 11:05] LABS: ALKALINE PHOSPHATASE 103 U/L (45-117); BILIRUBIN,TOTAL 0.5 mg/dL (0.2-1.0); CHOL/HDL RATIO 3.2; HDL CHOL % 31 % (28-40); HDL CHOLESTEROL (DIRECT) 69 mg/dL (40-60); LDL CHOLESTEROL,CALCULATED 141 mg/dL (54-169); TOTAL PROTEIN 7.3 g/dL (6.4-8.2)
[2020-12-06 12:28] LABS: BASOPHILS % (AUTO) 1 % (0-1); EOSINOPHILS % (AUTO) 3 % (1-7); LYMPHOCYTES % (AUTO) 24 % (22-44); MEAN CORPUSCULAR HEMOGLOBIN 30.4 pg (27.0-34.8); MEAN CORPUSCULAR HGB CONC 33.9 g/dL (32.4-35.8); MEAN PLATELET VOLUME 6.6 fL (7.4-10.4); MONOCYTES % (AUTO) 11 % (2-9); NEUTROPHILS % (AUTO) 61 % (42-75); PLATELET COUNT 280 x10^3/uL (130-400); RED BLOOD COUNT 4.49 x10^6/uL (3.82-5.3); RED CELL DISTRIBUTION WIDTH 13.5 % (9.6-15.2)
== END 2020-12-04 23:59 | disposition home or self-care (01) ==
LOC: LAB 10:28
PROVIDERS: ATTEND Family Medicine
DX: E89.0 Postprocedural hypothyroidism (principal); E78.5 Hyperlipidemia, unspecified
CPT/HCPCS: 36415; 80053; 80061; 84443; 85025

== ENCOUNTER 2021-01-05 10:10 | Emergency (ER) | payer OTHER ==
[~2021-01-05] VITALS: Ht 167.6 cm; Wt 127.5 kg
[2021-01-05 10:43] VITALS: BP 148/98
--- NOTE | 2021-01-05 10:53 | NUR ---
TASK RN: PT C/O PRODUCTIVE COUGH, AND OG X4 DAYS. DENIES ANY SICK CONTACTS, NEEDS COVID TEST FOR WORK. PT PLACED ON VITALS MONITORS, SPO2 97% RA.
--- NOTE | 2021-01-05 13:57 | NUR ---
Patient given discharge instructions and they have confirmed that they understand the instructions. Patient ambulatory with steady gait. No questions at time of discharge.
== END 2021-01-05 13:59 | disposition home or self-care (01) ==
LOC: ED 13:17
DX: J06.9 Acute upper respiratory infection, unspecified (principal); Z20.822 Contact with and (suspected) exposure to COVID-19; I10 Essential (primary) hypertension; E03.9 Hypothyroidism, unspecified; Z86.73 Personal history of transient ischemic attack (TIA), and cerebral infarction without residual deficits
CPT/HCPCS: 99283; U0003; U0005

== ENCOUNTER 2021-02-13 00:32 | Emergency (ER) | payer OTHER ==
[~2021-02-13] VITALS: Ht 167.6 cm; Wt 122.7 kg
[2021-02-13 00:36] VITALS: BP 134/84
--- NOTE | 2021-02-13 00:44 | NUR ---
Pt brought in by EMS for syncopal episode while at home. Per EMS and pt, pt felt faint, had a "passing out" episode. EMS arrived on scene, pt had SBP in 80's. Pt is known COVID POSITIVE as of yesterday. States she has been having a cough, dyspnea upon exertion, and subjective fevers. Pt has not been vaccinated. Pt received roughly 500mL NSS bolus w/ EMS and became normotesnive and more alert. Pt is alert and orented x4, able to make her needs known. Interestingly enough, pt is 9 months and had preeclampsia/ecclampsia during and was d/c on PO Labetalol. She continues to take her Labetalol but has been titrating her dose down per her PCP.
[2021-02-13] MEDS ORDERED: SODIUM CHLORIDE 0.9% 1,000ML IVBOLUS ONE (01:00)
[2021-02-13 01:19] LABS: BASOPHILS % (AUTO) 0 % (0-1); EOSINOPHILS % (AUTO) 0 % (1-7); LYMPHOCYTES % (AUTO) 12 % (22-44); MEAN CORPUSCULAR HEMOGLOBIN 30.5 pg (27.0-34.8); MEAN CORPUSCULAR HGB CONC 34.3 g/dL (32.4-35.8); MEAN PLATELET VOLUME 6.9 fL (7.4-10.4); MONOCYTES % (AUTO) 13 % (2-9); NEUTROPHILS % (AUTO) 75 % (42-75); PLATELET COUNT 190 x10^3/uL (130-400); RED BLOOD COUNT 4.44 x10^6/uL (3.82-5.3); RED CELL DISTRIBUTION WIDTH 13.5 % (9.6-15.2)
[2021-02-13 01:26] LABS: ALBUMIN 3.3 g/dL (3.4-5.0); ANION GAP 6 mmol/L (5-15); CHLORIDE 101 mmol/L (98-107); CREATININE 0.88 mg/dL (0.55-1.02)
--- NOTE | 2021-02-13 02:32 | NUR ---
PT AMB WITHOUT DIFFICULTY DENIES SOB.
--- NOTE | 2021-02-13 03:07 | NUR ---
Patient/Caregiver given discharge instructions and they have confirmed that they understand the instructions. Patient ambulatory with steady gait. NAD, all questions answered appropriately, denies additional needs at this time. No personal belongings left in room after discharge.
== END 2021-02-13 03:30 | disposition home or self-care (01) ==
LOC: ED 03:09
DX: U07.1 COVID-19 (principal); J18.9 Pneumonia, unspecified organism; R55 Syncope and collapse; R06.02 Shortness of breath; R42 Dizziness and giddiness; I10 Essential (primary) hypertension; E03.9 Hypothyroidism, unspecified; Z86.73 Personal history of transient ischemic attack (TIA), and cerebral infarction without residual deficits
CPT/HCPCS: 36415; 71045; 80048; 82040; 84703; 85025; 93005; 99285

== ENCOUNTER 2021-02-18 11:27 | Inpatient (IN) | payer OTHER ==
[~2021-02-18] VITALS: Ht 167.6 cm; Wt 118.5 kg
[2021-02-18 13:53] LABS: BASOPHILS % (AUTO) 0 % (0-1); EOSINOPHILS % (AUTO) 0 % (1-7); LYMPHOCYTES % (AUTO) 12 % (22-44); MEAN CORPUSCULAR HEMOGLOBIN 29.9 pg (27.0-34.8); MEAN CORPUSCULAR HGB CONC 34.5 g/dL (32.4-35.8); MEAN PLATELET VOLUME 7.4 fL (7.4-10.4); MONOCYTES % (AUTO) 7 % (2-9); NEUTROPHILS % (AUTO) 81 % (42-75); PLATELET COUNT 196 x10^3/uL (130-400); RED BLOOD COUNT 4.73 x10^6/uL (3.82-5.3); RED CELL DISTRIBUTION WIDTH 13.2 % (9.6-15.2)
[2021-02-18] MEDS ORDERED: DOXYCYCLINE 100 MG in DEXTROSE 5% 250 ML IV SCH (14:00)
[2021-02-18] MEDS ORDERED: DEXAMETHASONE 4 MG/ML, 1ML IVPush ONE (14:00)
[2021-02-18] MEDS ORDERED: CEFTRIAXONE 1,000 MG in DEXTROSE 5% 50 ML IVPB ONE (14:00)
[2021-02-18 14:01] LABS: ALANINE AMINOTRANSFERASE 68 U/L (12-78); ALBUMIN 3.1 g/dL (3.4-5.0); ANION GAP 7 mmol/L (5-15); CHLORIDE 96 mmol/L (98-107)
[2021-02-18] MEDS ORDERED: DEXAMETHASONE 4 MG/ML, 1ML ONE ×2 (14:10→14:17)
[2021-02-18 14:12] LABS: D-DIMER (DIC) 1.74 ug/mlFEU (0.00-0.52); PROTIME 10.8 Seconds (9.6-11.5)
[2021-02-18] MEDS ORDERED: ACETAMINOPHEN 500 MG TABLET ONE (14:17)
[2021-02-18] MEDS ORDERED: OXYcodone/APAP 5/325MG TABLET PO PRN (14:30)
[2021-02-18] MEDS ORDERED: ACETAMINOPHEN 500 MG TABLET PO ONE (14:30)
[2021-02-18 14:32] LABS: ALKALINE PHOSPHATASE 87 U/L (45-117); BILIRUBIN,TOTAL 0.5 mg/dL (0.2-1.0); CREATININE 1.11 mg/dL (0.55-1.02); TOTAL PROTEIN 7.6 g/dL (6.4-8.2)
[2021-02-18] MEDS ORDERED: ONDANSETRON 2MG/ML, 2ML IVPush PRN (15:00)
[2021-02-18] MEDS ORDERED: TEMAZEPAM 15 MG CAPSULE PO PRN (15:00)
[2021-02-18] MEDS ORDERED: IBUPROFEN 600 MG TABLET PO PRN (15:00)
[2021-02-18] MEDS ORDERED: ACETAMINOPHEN 325 MG TABLET PO PRN (15:00)
--- NOTE | 2021-02-18 15:48 | NUR ---
report to PATTI Mccartney
--- NOTE | 2021-02-18 15:49 | NUR ---
back from [place]
[2021-02-18] MEDS ORDERED: ENOXAPARIN 40 MG/0.4 ML SQ SCH (16:00)
[2021-02-18] MEDS ORDERED: OMNIPAQUE 350 MG/ML, 100ML BOTTLE ONE (16:21)
[2021-02-18] MEDS ORDERED: SODIUM CHLORIDE 0.9% 1,000ML IVBOLUS ONE (17:00)
[2021-02-18] MEDS ORDERED: REMDESIVIR 200 MG in SODIUM CHLORIDE 0.9% 250 ML IVPB ONE (17:30)
[2021-02-18] MEDS: ASCORBIC ACID 500 MG TABLET PO SCH (17:42)
[2021-02-18 17:57] VITALS: BP 104/69
[2021-02-18 18:53] VITALS: BP 107/74
[2021-02-18] MEDS: DOCUSATE 100 MG CAPSULE PO SCH (20:15)
[2021-02-19 01:23] VITALS: BP 102/68
[2021-02-19] MEDS: LEVOTHYROXINE 150 MCG TABLET PO SCH (05:51)
[2021-02-19 07:34] VITALS: BP 115/78
[2021-02-19] MEDS: CHOLECALCIFEROL 1,000 UNIT TABLET PO SCH (08:50)
[2021-02-19] MEDS: ZINC SULFATE 220 MG CAPSULE PO SCH (08:50)
[2021-02-19] MEDS: ASCORBIC ACID 500 MG TABLET PO SCH ×2 (08:50→17:55)
[2021-02-19] MEDS: CALCITRIOL 0.25 MCG CAPSULE PO SCH (08:50)
[2021-02-19] MEDS: DEXAMETHASONE 4 MG/ML, 1ML IVPush SCH (08:51)
[2021-02-19] MEDS: DOCUSATE 100 MG CAPSULE PO SCH ×2 (08:51→19:48)
[2021-02-19] MEDS ORDERED: CALCITRIOL 0.25 MCG CAPSULE PO SCH (09:00)
[2021-02-19 12:42] VITALS: BP 117/76
[2021-02-19] MEDS: ENOXAPARIN 40 MG/0.4 ML SQ SCH (17:54)
[2021-02-19] MEDS: REMDESIVIR 100 MG in SODIUM CHLORIDE 0.9% 250 ML IVPB SCH (17:55)
[2021-02-19 20:11] VITALS: BP 118/78
[2021-02-20 02:11] VITALS: BP 130/84
[2021-02-20] MEDS: ENOXAPARIN 40 MG/0.4 ML SQ SCH ×2 (05:12→17:55)
[2021-02-20] MEDS: LEVOTHYROXINE 150 MCG TABLET PO SCH (05:12)
[2021-02-20 06:05] LABS: ALBUMIN 2.7 g/dL (3.4-5.0); ANION GAP 6 mmol/L (5-15); CALCIUM 8.2 mg/dL (8.5-10.1); CHLORIDE 104 mmol/L (98-107)
[2021-02-20 06:11] LABS: ALANINE AMINOTRANSFERASE 85 U/L (12-78); ALKALINE PHOSPHATASE 76 U/L (45-117); BILIRUBIN,TOTAL 0.3 mg/dL (0.2-1.0); CREATININE 0.73 mg/dL (0.55-1.02); TOTAL PROTEIN 6.8 g/dL (6.4-8.2)
[2021-02-20] MEDS: DOCUSATE 100 MG CAPSULE PO SCH ×2 (09:00→20:27)
[2021-02-20] MEDS: ZINC SULFATE 220 MG CAPSULE PO SCH (09:38)
[2021-02-20] MEDS: DEXAMETHASONE 4 MG/ML, 1ML IVPush SCH (09:38)
[2021-02-20] MEDS: CALCITRIOL 0.25 MCG CAPSULE PO SCH (09:38)
[2021-02-20] MEDS: CHOLECALCIFEROL 1,000 UNIT TABLET PO SCH (09:39)
[2021-02-20] MEDS: ASCORBIC ACID 500 MG TABLET PO SCH ×2 (09:40→17:56)
[2021-02-20 10:25] VITALS: BP 114/76
[2021-02-20 11:00] VITALS: BP 118/77
[2021-02-20 13:11] VITALS: BP 117/75
[2021-02-20] MEDS: REMDESIVIR 100 MG in SODIUM CHLORIDE 0.9% 250 ML IVPB SCH (17:53)
[2021-02-20 20:13] VITALS: BP 105/71
[2021-02-20] MEDS: GUAIFENESIN ER 600 MG TABLET PO SCH (20:27)
[2021-02-21 01:04] VITALS: BP 104/69
[2021-02-21] MEDS: ENOXAPARIN 40 MG/0.4 ML SQ SCH ×2 (05:02→17:18)
[2021-02-21] MEDS: LEVOTHYROXINE 150 MCG TABLET PO SCH (05:02)
[2021-02-21 06:00] LABS: ALBUMIN 2.7 g/dL (3.4-5.0); BASOPHILS % (AUTO) 0 % (0-1); CALCIUM 8.3 mg/dL (8.5-10.1); CHLORIDE 108 mmol/L (98-107); EOSINOPHILS % (AUTO) 0 % (1-7); LYMPHOCYTES % (AUTO) 24 % (22-44); MEAN CORPUSCULAR HEMOGLOBIN 29.4 pg (27.0-34.8); MEAN CORPUSCULAR HGB CONC 34.2 g/dL (32.4-35.8); MONOCYTES % (AUTO) 10 % (2-9); NEUTROPHILS % (AUTO) 65 % (42-75); PLATELET COUNT 266 x10^3/uL (130-400); RED CELL DISTRIBUTION WIDTH 13.1 % (9.6-15.2)
[2021-02-21 06:05] LABS: ALANINE AMINOTRANSFERASE 97 U/L (12-78); ALKALINE PHOSPHATASE 74 U/L (45-117); ANION GAP 2 mmol/L (5-15); BILIRUBIN,TOTAL 0.4 mg/dL (0.2-1.0); C-REACTIVE PROTEIN, QUANT 0.94 mg/dL (0.02-0.49); CREATININE 0.66 mg/dL (0.55-1.02); TOTAL PROTEIN 6.6 g/dL (6.4-8.2)
[2021-02-21] MEDS: DEXAMETHASONE 4 MG/ML, 1ML IVPush SCH (09:05)
[2021-02-21] MEDS: ZINC SULFATE 220 MG CAPSULE PO SCH (09:05)
[2021-02-21] MEDS: GUAIFENESIN ER 600 MG TABLET PO SCH ×2 (09:05→19:31)
[2021-02-21] MEDS: ASCORBIC ACID 500 MG TABLET PO SCH ×2 (09:05→17:18)
[2021-02-21] MEDS: CALCITRIOL 0.25 MCG CAPSULE PO SCH (09:06)
[2021-02-21] MEDS: DOCUSATE 100 MG CAPSULE PO SCH ×2 (09:06→19:30)
[2021-02-21] MEDS: CHOLECALCIFEROL 1,000 UNIT TABLET PO SCH (09:06)
[2021-02-21 09:12] VITALS: BP 109/72
[2021-02-21 12:35] VITALS: BP 114/72
[2021-02-21] MEDS ORDERED: REMDESIVIR 100 MG in SODIUM CHLORIDE 0.9% 250 ML IVPB SCH (17:30)
[2021-02-21 20:00] VITALS: BP 120/77
[2021-02-22 01:23] VITALS: BP 125/73
[2021-02-22 04:55] LABS: ALBUMIN 2.5 g/dL (3.4-5.0); ANION GAP 4 mmol/L (5-15); CALCIUM 8.3 mg/dL (8.5-10.1); CHLORIDE 109 mmol/L (98-107)
[2021-02-22 04:59] LABS: ALANINE AMINOTRANSFERASE 92 U/L (12-78); ALKALINE PHOSPHATASE 74 U/L (45-117); BILIRUBIN,TOTAL 0.4 mg/dL (0.2-1.0); CREATININE 0.62 mg/dL (0.55-1.02); TOTAL PROTEIN 6.6 g/dL (6.4-8.2)
[2021-02-22] MEDS: ENOXAPARIN 40 MG/0.4 ML SQ SCH ×2 (06:00→18:08)
[2021-02-22] MEDS: LEVOTHYROXINE 150 MCG TABLET PO SCH (06:00)
[2021-02-22] MEDS ORDERED: LEVOTHYROXINE 200 MCG TABLET ONE (06:11)
[2021-02-22] MEDS: ASCORBIC ACID 500 MG TABLET PO SCH ×2 (07:49→18:08)
[2021-02-22] MEDS: CALCITRIOL 0.25 MCG CAPSULE PO SCH (07:50)
[2021-02-22] MEDS: GUAIFENESIN ER 600 MG TABLET PO SCH ×2 (07:51→21:05)
[2021-02-22] MEDS: CHOLECALCIFEROL 1,000 UNIT TABLET PO SCH (07:51)
[2021-02-22] MEDS: ZINC SULFATE 220 MG CAPSULE PO SCH (07:51)
[2021-02-22] MEDS: DOCUSATE 100 MG CAPSULE PO SCH ×2 (07:51→21:00)
[2021-02-22] MEDS: DEXAMETHASONE 4 MG/ML, 1ML IVPush SCH (07:51)
[2021-02-22 09:05] VITALS: BP 116/76
[2021-02-22 12:49] VITALS: BP 106/73
[2021-02-22] MEDS ORDERED: REMDESIVIR 100 MG in SODIUM CHLORIDE 0.9% 250 ML IVPB ONE (13:00)
[2021-02-22 21:03] VITALS: BP 116/80
[2021-02-23 00:35] VITALS: BP 116/76
[2021-02-23] MEDS: LEVOTHYROXINE 150 MCG TABLET PO SCH (06:03)
[2021-02-23] MEDS: ENOXAPARIN 40 MG/0.4 ML SQ SCH ×2 (06:04→16:14)
[2021-02-23] MEDS: DOCUSATE 100 MG CAPSULE PO SCH (09:00)
[2021-02-23] MEDS: ASCORBIC ACID 500 MG TABLET PO SCH ×2 (09:04→16:14)
[2021-02-23] MEDS: CHOLECALCIFEROL 1,000 UNIT TABLET PO SCH (09:04)
[2021-02-23] MEDS: CALCITRIOL 0.25 MCG CAPSULE PO SCH (09:04)
[2021-02-23] MEDS: GUAIFENESIN ER 600 MG TABLET PO SCH (09:04)
[2021-02-23] MEDS: ZINC SULFATE 220 MG CAPSULE PO SCH (09:04)
[2021-02-23] MEDS: DEXAMETHASONE 4 MG/ML, 1ML IVPush SCH (09:04)
[2021-02-23 09:05] VITALS: BP 142/87
[2021-02-23 13:22] VITALS: BP 110/73
[2021-02-23] MEDS ORDERED: ASCO500T9 PO (16:08)
[2021-02-23 18:36] VITALS: BP 125/75
== END 2021-02-23 19:12 | disposition home or self-care (01) | DRG 177 ==
LOC: ED 11:32 → SUATTDRO 14:22 → EDIP 14:29 → 4WST 16:02
PROVIDERS: ADMIT Internal Medicine; ATTEND Internal Medicine
PROC: XW033E5 Introduction of Remdesivir Anti-infective into Peripheral Vein, Percutaneous Approach, New Technology Group 5 (ICD-10-PCS; principal; 2021-02-18)
DX: U07.1 COVID-19 (principal); J12.82 Pneumonia due to coronavirus disease 2019; J96.01 Acute respiratory failure with hypoxia; E87.1 Hypo-osmolality and hyponatremia; E86.0 Dehydration; T38.0X5A Adverse effect of glucocorticoids and synthetic analogues, initial encounter; R55 Syncope and collapse; R73.9 Hyperglycemia, unspecified; R74.01 Elevation of levels of liver transaminase levels; Y92.89 Other specified places as the place of occurrence of the external cause
CPT/HCPCS: 36415; 71045; 71275; 80053; 82728; 83036; 83605; 83615; 84145; 85025; 85049; 85379; 85384; 85610; 85730; 86140; 87040; 93005; 96374; G0378; J0696; J1100; J1650; Q9967; J7030; J7050

== ENCOUNTER 2021-04-08 14:28 | Outpatient (CLI) | payer OTHER ==
[~2021-04-08 14:28] MED LIST changes: +ASCO500T9 PO; +OXYC1TAB12 PO; -OXYC1TAB14 PO
== END 2021-04-08 23:59 | disposition home or self-care (01) ==
LOC: CFH 14:28
PROVIDERS: ATTEND Physician Assistant
DX: R93.89 Abnormal findings on diagnostic imaging of other specified body structures (principal); R05 Cough; M51.34 Other intervertebral disc degeneration, thoracic region; M47.814 Spondylosis without myelopathy or radiculopathy, thoracic region; Z87.74 Personal history of (corrected) congenital malformations of heart and circulatory system; Z86.16 Personal history of COVID-19; Z87.01 Personal history of pneumonia (recurrent)
CPT/HCPCS: 71250